=== PATIENT | male | born 1945 | race Hispanic/Latino ===

== ENCOUNTER 2016-10-05 12:49 | Outpatient (CLI) | payer OTHER ==
[2016-10-05 15:53] LABS: Albumin 4.2 g/dL (3.9-5); Albumin/Globulin Ratio 1.9 %; BUN/Creatinine Ratio 15.71; Bilirubin,Total 0.5 mg/dL (0.1-1.2); Calcium 9.6 mg/dL (8.4-10.2); Chloride 98.8 mmol/L (98-107); Potassium 4.2 mmol/L (3.6-5.0); Total Protein 6.4 g/dL (6.3-8.2)
--- NOTE | 2016-10-12 18:14 | Magnetic Resonance Report ---
MR scan of the cranium was performed with and without contrast. Pulse sequences included: 1. T1 weighted sagittal and axial images without contrast and T1 axial images with contrast and reformatted coronal and sagittal images with contrast 2. T2 weighted axial and coronal images 3. FLAIR axial images 4. Diffusion-weighted axial images 5. Apparent diffusion coefficient images 6. gradient echo axial images Views of the posterior fossa showed a normal craniocervical junction. Cerebellar pontine angles were normal with normal seventh-eighth nerve complexes. Brainstem was normal. Cerebellum showed marked cerebellar hemisphere and vermian atrophy. The ventricular system showed mild dilation of the occipital horns but no distortion. Images of the hemispheres showed mild atrophy of the parietal regions. Mild white matter changes were present. Some increased signal was seen in the left parietal and temporal regions in the cortex only suggestive of small infarcts. There were no associated changes on the diffusion weighted images. Pituitary, flow voids in the [place], orbits, and basal ganglia were normal. There was a small left maxillary sinus mucus retention cyst. There are no abnormal areas of enhancement with contrast. Impression: Abnormal MR scan of the cranium with and without contrast 1. cerebellar and vermian atrophy 2. parietal atrophy with colpocephaly 3. 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 left maxillary sinus mucus retention cyst 5. mild araiosis
== END 2016-10-05 12:50 | disposition home or self-care (01) ==
LOC: SPVIMAG 12:49
PROVIDERS: ATTEND Specialist
DX: R26.0 Ataxic gait (principal)
CPT/HCPCS: 36415; 70553; 80053; 80175; A9577

== ENCOUNTER 2018-03-16 10:28 | Outpatient (CLI) | payer MEDICARE, OTHER ==
--- NOTE | 2018-03-16 12:46 | Magnetic Resonance Report ---
MRI BRAIN WITHOUT AND WITH CONTRAST: 03/16/18 10:42:00 CLINICAL: Ataxia. TECHNIQUE: Axial diffusion, T1, T2, gradient echo T2*, and coronal and axial FLAIR and sagittal T1 plus coronal and axial postcontrast T1 sequences on a 1.5 Juanita magnet. 12.0 cc of Multihance was injected intravenously for the contrast portion of the exam. Consent was obtained prior to the administration of contrast. FINDINGS: Global enlargement of sulci and ventricles. This includes the cerebellum. No restricted diffusion. No mass or enhancing lesion. No hemorrhage, edema or extra-axial collection. No chronic infarcts and no micro-bleeds. Normal pituitary and optic chiasm. The brainstem is normal. Intact vascular flow voids. The orbits, sinuses and soft tissues are normal. Normal calvarium and skull base. IMPRESSION: 1. Pronounced global cerebral and cerebellar cortical atrophy. 2. No evidence of tumor. 3. No evidence of infarct or hemorrhage. 4. No acute change.
== END 2018-03-16 10:29 | disposition home or self-care (01) ==
LOC: MRI 10:28
PROVIDERS: ATTEND Internal Medicine
DX: G31.9 Degenerative disease of nervous system, unspecified (principal); R27.0 Ataxia, unspecified
CPT/HCPCS: 36415; 70553; 82565; 84520; A9577